=== PATIENT | male | born 1965 | race Caucasian/White ===

== ENCOUNTER 2019-03-13 11:18 | Observation (INO) ==
[2019-03-13] MEDS ORDERED: Furosemide 40 MG/4 ML VIAL IVP ONE (11:38)
[2019-03-13] MEDS ORDERED: methylPREDNISolone 125 MG/2 ML VIAL IVP ONE (11:38)
[2019-03-13] MEDS ORDERED: Ipratropium/Albuterol Neb 3 ML IH ONE (11:38)
[2019-03-13] MEDS ORDERED: Albuterol 2.5 MG/3 ML NEBULIZER IH ONE (11:38)
[2019-03-13] MEDS ORDERED: *HR* LORazepam 2 MG/ML VIAL IVP ONE (11:49)
[2019-03-13 12:13] LABS: Basophils % 0.3 %; Hematocrit 29.3 % (37.5-50.1); Hemoglobin 9.3 g/dL (12.9-16.9); Immature Granulocytes % 0.3 % (0-4); Lymphocytes # 1.5 K/mcL (0.6-4.6); Mean Corpuscular HGB Conc 31.7 g/dL (31.6-35.5); Mean Corpuscular Hemoglobin 20.7 pg (28.0-33.3); Mean Corpuscular Volume 65.1 fL (83.0-100.0); Mean Platelet Volume 9.5 fL (9.4-12.4); Monocytes # 0.5 K/mcL (0.0-1.3); Neutrophils # 5.2 K/mcL (1.6-8.9); Platelet Count 207 K/mcL (140-400); Red Cell Distribution Width 18.2 % (11.5-14.5); Segmented Neutrophils % 71.4 %; White Blood Count 7.2 K/mcL (4.3-11.1)
[2019-03-13 12:23] LABS: INR 1.1
[2019-03-13 12:26] LABS: Activated Partial Thrombo Time 37.3 Seconds (26.0-36.0)
[2019-03-13 12:32] LABS: BUN/Creatinine Ratio 12 (6-26); Blood Urea Nitrogen 11 mg/dL (6-20); Calcium 9.2 mg/dL (8.6-10.3); Carbon Dioxide 24 mEq/L (23-29); Chloride 96 mEq/L (98-107); Glucose 137 mg/dL (70-105); Osmolality,Calculated 270 (280-300); Sodium 129 mEq/L (136-145); eGFR For African Americans > 60 (> 60); eGFR For Non-African Americans > 60 (> 60)
[2019-03-13 12:34] LABS: Troponin I < 0.03 ng/mL (< 0.04)
[2019-03-13] MEDS ORDERED: Isovue-370 500 ML BOTTLE IVP ONE (12:34)
[2019-03-13 12:35] LABS: Anisocytosis 1+ (Not Present); Hypochromasia Present (Not Present); Microcytosis Present (Not Present)
[2019-03-13] MEDS ORDERED: Mag Hydrox/Al Hydrox/Simeth 30 ML UDC PO PRN (14:21)
[2019-03-13] MEDS ORDERED: Ondansetron ODT 4 MG TAB.RAPDIS SL PRN (14:21)
[2019-03-13] MEDS ORDERED: Naloxone 0.4 MG/ML INJ IVP PRN (14:21)
[2019-03-13] MEDS ORDERED: Ipratropium/Albuterol Neb 3 ML IH PRN (14:35)
[2019-03-13] MEDS ORDERED: Dextrose Gel 15 GM/37.5 ML TUBE PO PRN ×2 (14:51)
[2019-03-13] MEDS ORDERED: *HR* Dextrose 50 % in Water (Vial) 50 ML VIAL IVP PRN (14:51)
[2019-03-13] MEDS ORDERED: D5% in Water 1,000 ML IVC PRN (14:51)
[2019-03-13] MEDS: Ibuprofen 800 MG TABLET PO PRN ×2 (14:57→23:28)
[2019-03-13] MEDS: *HR* LORazepam 0.5 MG TABLET PO PRN ×2 (16:39→21:48)
[2019-03-13] MEDS: Insulin LISPRO 300 UNITS/3 ML VIAL SQ SCH (16:40)
[2019-03-13 17:17] LABS: Bilirubin,Urine Negative (Negative); Blood,Urine Negative (Negative); Clarity,Urine Clear (Clear); Glucose,Urine (UA) Normal (Normal); Ketones,Urine Negative (Negative); Leukocyte Esterase,Urine Negative (Negative); Nitrite,Urine Negative (Negative); Protein,Urine Negative (Neg-Trace); Urobilinogen,Urine Normal (Normal)
[2019-03-13 18:15] LABS: Color,Urine Light Yellow (Yellow)
[2019-03-13] MEDS ORDERED: BUPRENORPHINE HCL SL SCH (21:00)
[2019-03-13] MEDS ORDERED: NALOXONE HCL SL SCH (21:00)
[2019-03-13] MEDS ORDERED: Insulin LISPRO 300 UNITS/3 ML VIAL SQ SCH (21:00)
[2019-03-13] MEDS: Budesonide/Formoterol 160/4.5 1 PUFF INH IH SCH (21:53)
[2019-03-14 05:10] LABS: Hematocrit 28.7 % (37.5-50.1); Hemoglobin 9.1 g/dL (12.9-16.9); Mean Corpuscular HGB Conc 31.7 g/dL (31.6-35.5); Mean Corpuscular Hemoglobin 20.4 pg (28.0-33.3); Mean Corpuscular Volume 64.2 fL (83.0-100.0); Mean Platelet Volume 10.2 fL (9.4-12.4); Platelet Count 212 K/mcL (140-400); Red Blood Count 4.47 M/mcL (4.19-5.50); Red Cell Distribution Width 17.8 % (11.5-14.5); White Blood Count 6.1 K/mcL (4.3-11.1)
[2019-03-14 05:33] LABS: Alanine Aminotransferase 17 Units/L (7-52); Albumin 3.9 g/dL (3.5-5.7); Alkaline Phosphatase 52 Units/L (34-104); Aspartate Amino Transferase 21 Units/L (13-39); BUN/Creatinine Ratio 16 (6-26); Bilirubin,Total 0.6 mg/dL (0.3-1.0); Blood Urea Nitrogen 14 mg/dL (6-20); Calcium 9.1 mg/dL (8.6-10.3); Carbon Dioxide 22 mEq/L (23-29); Chloride 93 mEq/L (98-107); Chol/HDL Ratio 3.7 (0-4.9); Cholesterol 95 mg/dL (< 200); Globulin 3.8 g/dL (2.4-3.5); Glucose 144 mg/dL (70-105); HDL Cholesterol 26 mg/dL (40-59); LDL Cholesterol,Calculated 53 mg/dL (0-99); Magnesium 1.5 mg/dL (1.6-2.6); Osmolality,Calculated 267 (280-300); Potassium 4.1 mEq/L (3.5-5.1); Sodium 127 mEq/L (136-145); Total Protein 7.7 g/dL (6.4-8.9); Triglycerides 80 mg/dL (< 150); eGFR For African Americans > 60 (> 60); eGFR For Non-African Americans > 60 (> 60)
[2019-03-14] MEDS ORDERED: Patient Taking Own Medication 1 EACH SL SCH ×2 (05:43→17:00)
[2019-03-14] MEDS ORDERED: *HR* Enoxaparin 40 MG/0.4 ML SYRINGE SQ SCH (06:00)
[2019-03-14] MEDS ORDERED: Perflutren Lipid Microsphere 1.3 ML in 0.9 % Sodium Chloride 8.7 ML IVP ONE (06:50)
[2019-03-14] MEDS ORDERED: *HR* Metformin 500 MG TABLET PO SCH (08:00)
[2019-03-14] MEDS ORDERED: Furosemide 40 MG/4 ML VIAL IVP SCH (09:00)
[2019-03-14] MEDS ORDERED: Lisinopril 20 MG TABLET PO SCH (09:00)
[2019-03-14] MEDS ORDERED: amLODIPine 5 MG TABLET PO SCH (09:00)
[2019-03-14] MEDS ORDERED: Aspirin Enteric Coated 81 MG Tablet PO SCH (09:00)
[2019-03-14] MEDS: Ibuprofen 800 MG TABLET PO PRN (09:22)
[2019-03-14] MEDS: *HR* LORazepam 0.5 MG TABLET PO PRN (09:22)
[2019-03-14] MEDS: Insulin LISPRO 300 UNITS/3 ML VIAL SQ SCH ×2 (09:25→12:06)
[2019-03-14 09:26] LABS: % Iron Saturation 5 % (20-55); Iron 29 mcg/dL (65-175); Transferrin 413 mg/dL (203-362)
[2019-03-14 10:02] LABS: Estimated Average Glucose 163 mg/dl
[2019-03-14 10:12] LABS: Adenovirus Not Detected (Not Detect); Bordetella Pertussis Not Detected (Not Detect); Chlamydophila pneumoniae Not Detected (Not Detect); Coronavirus 229E Not Detected (Not Detect); Coronavirus HKU1 Not Detected (Not Detect); Coronavirus NL63 Not Detected (Not Detect); Coronavirus OC43 Not Detected (Not Detect); Human Metapneumovirus Not Detected (Not Detect); Human Rhinovirus/Enterovirus Not Detected (Not Detect); Influenza A Subtype 2009 H1 Not Detected (Not Detect); Influenza B Not Detected (Not Detect); Mycoplasma pneumoniae Not Detected (Not Detect); Parainfluenza Virus 1 Not Detected (Not Detect); Parainfluenza Virus 2 Not Detected (Not Detect); Parainfluenza Virus 3 Not Detected (Not Detect); Parainfluenza Virus 4 Not Detected (Not Detect); Respiratory Syncytial Virus Not Detected (Not Detect)
[2019-03-14] MEDS ORDERED: Nicotine 14 MG PATCH.TD24 TD SCH (10:15)
[2019-03-14] MEDS: Budesonide/Formoterol 160/4.5 1 PUFF INH IH SCH (10:31)
[2019-03-14] MEDS ORDERED: *HR* LORazepam 0.5 MG TABLET PO ONE (14:29)
[2019-03-14 14:30] VITALS: BP 127/62
[2019-03-14] MEDS ORDERED: Furosemide 20 MG/2 ML VIAL IVP SCH (17:15)
[2019-03-17 06:47] LABS: Mycoplasma pneumoniae IgG 0.68 U/L (<=0.09)
== END 2019-03-14 17:07 | disposition critical access hospital (66) ==
LOC: EMEROOPIK 11:18 → INPPIK 11:18
PROVIDERS: ADMIT Family Medicine; ATTEND Family Medicine